=== PATIENT | male | born 1970 | race Caucasian/White ===

== ENCOUNTER 2024-02-12 12:03 | Emergency (ER) | payer SELFPAY ==
[2024-02-12 12:35] VITALS: BP 173/120
--- NOTE | 2024-02-12 14:06 | ED.GENMED ---
History of Present Illness
General
Chief Complaint: Skin Surface Trauma
Source: patient
Exam Limitations: none
Time Seen by Provider: 02/12/24 13:09
Nursing documentation reviewed up to this point in time: agreed with
Travel History
Have you had any contact with someone who has COVID-19?: No
Do you have any symptoms of coronavirus? Fever > 100 degrees, chills, cough, shortness of breath, sore throat, loss of taste or smell, muscle aches, or headache?: No
History of Present Illness
History of Present Illness:
53-year-old male past medical history of hypertension presenting to the emergency department today after a piece of metal cut his right wrist on the top of the wrist. He immediately noticed swelling and bleeding from the area. He applied pressure
and came to the ER. He claims that the wounds are very small punctures denies any gaping wound. He claims that he is up-to-date with his tetanus shot.
Past History
Past History
ED Past Medical History: None; Negative Asthma or HTN
ED Past Surgical History: Other (L foot surg.)
Social History
Tobacco: Former smoker
Personal:
Living: with family
Employment: Employed
Review of Systems
Review of Systems
Allergies reviewed?: Yes
All Other Systems: ROS reviewed and negative except as documented in HPI and ROS
Phy Exam
Physical Exam
Physical Exam:
GENERAL: Alert , in no apparent distress
EYE: pupils equal and reactive
NECK: Supple, no significant adenopathy.
ENT: o/p clr, mmm.
CARDIAC: Regular rate and rhythm .
LUNGS: Clear breath sounds bilaterally, no acute respiratory distress, no wheezes/rales/rhonchi
ABDOMEN: Soft, without focal tenderness, no r/g, no cvat
NEUROLOGICAL: Alert and oriented, no focal neuro deficits
SKIN: 3 small puncture wounds to the right wrist on the dorsal aspect just proximal to the wrist. No active bleeding mild tenderness to the area warm and dry, skin intact.
MUSCULOSKELETAL: No edema, well perfused.
PSYCH: Normal and appropriate interaction.
Course
Vital Signs
Initial and Last Documented VS:
Initial Vital Signs
Temp Pulse Resp Pulse Ox
98.2 F 87 19 97
02/12/24 12:19 02/12/24 12:19 02/12/24 12:19 02/12/24 12:19
Last Documented Vital Signs
Temp Pulse Resp BP Pulse Ox
98.2 F 87 19 173/120 97
02/12/24 12:19 02/12/24 12:19 02/12/24 12:19 02/12/24 12:35 02/12/24 12:19
MDM/Problems Addressed
MDM/Problems Addressed:
53-year-old male presenting to the emergency department today with concerns of puncture wound from a piece of metal to his dorsal right wrist. Initially was bleeding now controlled no pulsatile sensation to the area no evidence of significant
injury to the area otherwise no underlying tenderness to the bone. Patient did claim that this was fairly dirty and concerning is a puncture wound was started on antibiotics otherwise stable for outpatient management return precautions given.
*Critical Care Note
Total Time (30-74mins, 75-104mins- exclusive of procedures): Not Applicable
ED Attending Note
-
Portions of this chart may have been created with voice recognition software.� Occasional wrong word or��sound alike� substitutions may have occurred due to the inherent limitations of voice recognition software.
Discharge Plan
Departure
Patient Disposition: Home (Routine Discharge)
Date of Disposition: 02/12/24
Time of Disposition: 14:09
Patient with high blood pressure during this ER visit?: No
Condition: Good
Covid-19: Not Applicable
Discharge Problem:
Puncture wound of right wrist
Instructions: Wound Care (DC)
Prescriptions:
New
cefpodoxime 200 mg tablet
200 mg PO BID 3 Days Qty: 6 0RF
No Action
ibuprofen [Advil] 200 MG tablet
400 mg PO PRN (Reason: fever/aches)
hydrocodone-acetaminophen 7.5 MG/750 MG tablet
1 - 2 tab PO Q6HPRN PRN (Reason: pain) Qty: 25 0RF
levofloxacin 500 MG tablet
500 mg PO DAILY Qty: 7 0RF
Referrals:
NONE,* [Family Provider] -
Activity Restrictions/Additional Instructions:
You came to the emergency department today with concerns of an injury to your right wrist. Please keep the area clean covered and take the prescribed antibiotics to reduce risk of infection. Return to the emergency department for any worsening,
new or concerning symptoms.
Interventions
Interventions:
*Risk Screen - Suicide Last Done: 02/12/24 12:19
*General Assessment Last Done: 02/12/24 12:19
*Neglect/Abuse Screening Last Done: 02/12/24 12:19
ED-Skin Assessment Last Done: 02/12/24 13:34
Discharge Date and Time
Print Language: TURKMEN
[2024-02-12] MEDS: OMNICEF 300 MG PO (14:17)
[2024-02-12 14:23] VITALS: BP 169/113
[2024-02-12 14:24] VITALS: BP 169/113
== END 2024-02-12 14:25 | disposition home or self-care (01) ==
LOC: EMR 12:03
PROVIDERS: EMERGENCY PHYSICIAN Emergency Medicine
DX: S61.531A Puncture wound without foreign body of right wrist, initial encounter (principal); W26.8XXA Contact with other sharp object(s), not elsewhere classified, initial encounter; Z87.891 Personal history of nicotine dependence
CPT/HCPCS: 99283

== ENCOUNTER 2024-12-21 15:52 | Emergency (ER) | payer SELFPAY ==
[2024-12-21 16:02] VITALS: BP 139/90
[2024-12-21 16:42] LABS: COVID-19 Antigen Negative (Negative)
[2024-12-21 17:32] VITALS: BP 164/92
[2024-12-21 17:34] VITALS: BMI 35.3
[2024-12-21] MEDS: TORADOL 15 MG IV (17:42)
[2024-12-21] MEDS: NSS 1000 IV (17:42)
--- NOTE | 2024-12-21 17:46 | ED.GENMED ---
History of Present Illness
General
Chief Complaint: Cold/Flu/URI Symptoms
Source: patient
Exam Limitations: none
Time Seen by Provider: 12/21/24 17:02
Nursing documentation reviewed up to this point in time: agreed with
History of Present Illness
History of Present Illness:
Patient to ED with complaint of fever, cough, body aches. Symptoms started Thurs and contine to progress. Complains now of chest pain when coughing. Brought self to ED for eval.
Past History
Past History
ED Past Medical History: HTN; Negative Asthma
ED Past Surgical History: Other (L foot surg.)
Social History
Tobacco: Former smoker
Personal:
Living: with family
Employment: Employed
Review of Systems
Review of Systems
Allergies reviewed?: Yes
All Other Systems: ROS reviewed and negative except as documented in HPI and ROS
Constitutional: Reports fever and fatigue
EENT: Reports no symptoms
Respiratory: Reports cough
Cardiac: Reports no symptoms
ABD/GI: Reports no symptoms
Musculoskeletal: Reports other (generalized body aches.)
Skin: Reports no symptoms
Neurological: Reports weakness
Psychiatric: Reports no symptoms
Phy Exam
General Physical Exam
General Presentation: mild distress
General age: appears stated age
General Skin: warm and dry
General Habitus: normal
General Mental: alert
Cardiovascular Exam
Cardiovascular Exam: no edema and tachycardia
Pulmonary Exam
Pulmonary Exam: lungs clear and no respiratory distress
Gastrointestinal Exam
Gastrointestinal Exam: non tender and soft
Musculoskeletal Exam
Musculoskeletal Exam: full ROM and neuro vasc intact
Skin Exam
Skin Exam: normal color, warm/dry and no rash
Psychiatric Exam
Psychiatric Exam: normal mood/affect
Course
Orders/Labs/Results
Orders:
Orders
12/21/24 15:54
Electrocardiogram (*1) Urgent
Reason for Study: Chest Pain
EKG- Treatment ONCE
12/21/24 16:05
COVID-19 Antigen Urgent
Source: Nasal Swab
Influenza A+B Rapid Molecular Urgent
NOLAN Source: Nasal Swab
Specimen Description:
12/21/24 17:13
Ketorolac [Toradol] 15 mg IV NOW STA
CR Chest - 2 Views Urgent
Comment:
Reason For Exam: Cough, fever
12/21/24 17:14
0.9% Sodium Chloride 1000 ml [Nss] 1,000 ml IV BOLUS
12/21/24 17:36
Complete Blood Count/With Diff Urgent
Comprehensive Metabolic Panel Urgent
Abnormal Lab Results
12/21/24
17:36
MCH 31.4 H pg
(27.0-31.0)
Absolute Lymphs (auto) 0.7 L 10^3/uL
(1.2-3.4)
Absolute Monos (auto) 0.7 H 10^3/uL
(0.1-0.6)
Neutrophils % 75.8 H %
(42.2-75.2)
Lymphocytes % 11.0 L %
(20.5-51.1)
Monocytes % 11.3 H %
(1.7-9.3)
Sodium 133 L mmol/L
(135-145)
Chloride 97 L mmol/L
(98-107)
Glucose 107 H mg/dl
(70-99)
12/21/24 17:36
12/21/24 17:36
Vital Signs
Initial and Last Documented VS:
Initial Vital Signs
Pulse Resp BP Pulse Ox
125 18 139/90 94
12/21/24 16:02 12/21/24 16:02 12/21/24 16:02 12/21/24 16:02
Last Documented Vital Signs
Pulse Resp BP Pulse Ox
94 25 150/85 93
12/21/24 20:15 12/21/24 20:15 12/21/24 21:00 12/21/24 21:15
*Radiology
Radiology exam reviewed: radiology read reviewed
*Pulse Oximetry
Patient hypoxic: no
*Critical Care Note
Total Time (30-74mins, 75-104mins- exclusive of procedures): Not Applicable
Update Note
Update Note:
Patient to ED with complaint of flu-like symptoms since Sunday. Tested influenza A postive tonight. CXR neg for pneumonia. VSS, fever responding to tylenol. Will discharge home and he will follow upw ith his family doctor. Given instructions
on s/s to return to ED and he is agreeable to plan.
ED Attending Note
-
Portions of this chart may have been created with voice recognition software.� Occasional wrong word or��sound alike� substitutions may have occurred due to the inherent limitations of voice recognition software.
Discharge Plan
Departure
Patient Disposition: Home (Routine Discharge)
Date of Disposition: 12/21/24
Time of Disposition: 21:05
Patient with high blood pressure during this ER visit?: No
Condition: Good
Covid-19: Not Applicable
Discharge Problem:
Influenza A
Instructions: Fever, Adult (DC), Flu in adults - Discharge instructions
Prescriptions:
No Action
ibuprofen [Advil] 200 MG tablet
400 mg PO PRN (Reason: fever/aches)
hydrocodone-acetaminophen 7.5 MG/750 MG tablet
1 - 2 tab PO Q6HPRN PRN (Reason: pain) Qty: 25 0RF
levofloxacin 500 MG tablet
500 mg PO DAILY Qty: 7 0RF
cefpodoxime 200 mg tablet
200 mg PO BID 3 Days Qty: 6 0RF
Referrals:
Reji Castillo MD [Family Provider] - Follow up in 2-3 days
Interventions
Interventions:
*Risk Screen - Suicide Last Done: 12/21/24 17:36
*General Assessment Last Done: 12/21/24 17:34
*Neglect/Abuse Screening Last Done: 12/21/24 17:36
ED- Fall Risk Assessment Last Done: 12/21/24 17:34
*ED COVID-19 Vaccine History Last Done: 12/21/24 17:34
*Nursing Disposition Last Done: 12/21/24 21:20
ED- Pulmonary Assessment Last Done: 12/21/24 17:36
Discharge Date and Time
Discharge Date/Time: 12/21/24 21:32
Print Language: GERMAN
[2024-12-21 17:56] LABS: % Basophils 0.3 % (0-2); % Eosinophils 1.1 % (0-6); % Immature Granulocytes 0.5 % (0-0.5); % Monocytes 11.3 % (1.7-9.3); % Neutrophils 75.8 % (42.2-75.2); Absolute Eosinophils 0.1 10^3/uL (0-0.7); Absolute Lymphocytes 0.7 10^3/uL (1.2-3.4); Absolute Monocytes 0.7 10^3/uL (0.1-0.6); Absolute Neutrophils 4.6 10^3/uL (1.4-6.5); Hematocrit 42.4 % (39.0-52.0); Hemoglobin 14.8 g/dL (13.0-18.0); Mean Corp Hgb Conc. 34.9 g/dL (33.0-37.0); Mean Corpuscular Hgb 31.4 pg (27.0-31.0); Mean Corpuscular Volume 89.8 fL (80.0-94.0); Mean Platelet Volume 9.6 fL (7.4-10.4); Nucleated Red Blood Cells % 0 % (-); Platelet Count 164 10^3/uL (130-400); Red Blood Cell Count 4.72 10^6/uL (4.70-6.10); Red Cell Dist. Width 13.2 % (11.5-14.5); White Blood Cell Count 6.1 10^3/uL (4.8-10.8)
[2024-12-21 18:00] VITALS: BP 153/82
[2024-12-21 18:13] LABS: ALT (SGPT) 50 U/L (0-50); AST (SGOT) 41 U/L (17-59); Albumin 4.9 g/dl (3.5-5.0); Alkaline Phosphatase 50 U/L (38-126); Blood Urea Nitrogen 19 mg/dl (9-20); Calcium 8.8 mg/dl (8.4-10.2); Carbon Dioxide 26 mmol/L (22-30); Chloride 97 mmol/L (98-107); Estimated Creatinine Clearance 81 ml/min; Glucose 107 mg/dl (70-99); Sodium 133 mmol/L (135-145); Total Bilirubin 0.8 mg/dl (0.2-1.3); Total Protein 7.5 g/dl (6.3-8.2); eGFR > 60.00
[2024-12-21 19:00] VITALS: BP 150/84
[2024-12-21 20:00] VITALS: BP 149/82
[2024-12-21 21:00] VITALS: BP 150/85
== END 2024-12-21 21:32 | disposition home or self-care (01) ==
LOC: EMR 15:52
PROVIDERS: Nurse Practitioner; EMERGENCY PHYSICIAN Student in an Organized Health Care Education/Training Program; FAMILY PHYSICIAN Family Medicine
DX: J10.1 Influenza due to other identified influenza virus with other respiratory manifestations (principal); I10 Essential (primary) hypertension; Z87.891 Personal history of nicotine dependence
CPT/HCPCS: 99285; 96374; 96361; 71046; 80053; 85025; 87502; 87811; 93005

== ENCOUNTER 2025-04-10 19:40 | Emergency (ER) | payer SELFPAY ==
[2025-04-10 19:45] VITALS: BP 170/109
[2025-04-10 20:44] VITALS: BMI 35.1
[2025-04-10 21:33] VITALS: BP 152/94
--- NOTE | 2025-04-10 22:27 | ED.GENMED ---
History of Present Illness
General
Chief Complaint: Musculo-Skeletal Complaint
Time Seen by Provider: 04/10/25 20:43
History of Present Illness
History of Present Illness:
54-year-old male history of hypertension presenting with right upper arm injury. Patient states that he was installing a microwave when he accidentally dropped a microwave on his right upper arm/elbow. Patient reports significant pain to his right
biceps traveling down to his right forearm. Patient states that he was seen at urgent care where he had x-rays showing no acute fracture or dislocation. Patient states that he was instructed to come to the emergency department for an emergent MRI
or CT scan due to concern for tendon injury. Patient denies numbness, weakness or tingling.
Past History
Past History
ED Past Medical History: HTN; Negative Asthma
ED Past Surgical History: Other (L foot surg.)
Social History
Tobacco: Former smoker
Personal:
Living: with family
Employment: Employed
Phy Exam
Physical Exam
Physical Exam:
General: Alert, no acute distress
Head: NCAT
Eyes: clear conjunctiva
Lungs:Speaking full unlabored sentences. No respiratory distress.
MSK: no bony tenderness to right shoulder or elbow. 2+ right radial pulse. tenderness to right bicep, no brynn deformity. FROM right elbow and shoulder. compartments soft to right arm
Skin: warm, dry
Neuro: Alert and oriented x3. no focal deficits
Course
Vital Signs
Initial and Last Documented VS:
Initial Vital Signs
Temp Pulse Resp BP Pulse Ox
98.3 F 114 16 170/109 95
04/10/25 19:45 04/10/25 19:45 04/10/25 19:45 04/10/25 19:45 04/10/25 19:45
Last Documented Vital Signs
Temp Pulse Resp BP Pulse Ox
98.3 F 89 18 152/94 95
04/10/25 19:45 04/10/25 21:33 04/10/25 21:33 04/10/25 21:33 04/10/25 21:33
MDM/Problems Addressed
MDM/Problems Addressed:
54-year-old male presenting with right arm pain after microwave fell on his right inner arm. Patient had x-rays completed at urgent care that showed no bony abnormality. No bony tenderness to palpation, FROM right elbow/shoulder, neurovascularly
intact with soft compartments. Suspect muscular/tendon injury. Advised ice, elevation, Tylenol/Motrin. Stable for discharge with orthopedic follow-up
*Critical Care Note
Total Time (30-74mins, 75-104mins- exclusive of procedures): Not Applicable
ED Attending Note
-
Portions of this chart may have been created with voice recognition software.� Occasional wrong word or��sound alike� substitutions may have occurred due to the inherent limitations of voice recognition software.
Discharge Plan
Departure
Patient Disposition: Home (Routine Discharge)
Date of Disposition: 04/10/25
Time of Disposition: 21:22
Patient with high blood pressure during this ER visit?: Yes
Discharge Problem:
Arm pain, left
Instructions: Muscle Strain (DC), BLOOD PRESSURE
Prescriptions:
No Action
ibuprofen [Advil] 200 MG tablet
400 mg PO PRN (Reason: fever/aches)
hydrocodone-acetaminophen 7.5 MG/750 MG tablet
1 - 2 tab PO Q6HPRN PRN (Reason: pain) Qty: 25 0RF
levofloxacin 500 MG tablet
500 mg PO DAILY Qty: 7 0RF
cefpodoxime 200 mg tablet
200 mg PO BID 3 Days Qty: 6 0RF
Referrals:
Kj Serrano MD [Active, Orthopedics]
Reji Castillo MD [Family Provider, Family Practice]
Activity Restrictions/Additional Instructions:
Take Tylenol 975 mg every 6 hours and/or ibuprofen 800 mg every 8 hours if is needed for pain
Rest, ice
Use sling as needed
Follow-up with orthopedics next week
Return to the emergency department for new/worsening symptoms
Interventions
Interventions:
*Risk Screen - Suicide Last Done: 04/10/25 19:45
*General Assessment Last Done: 04/10/25 19:45
*Neglect/Abuse Screening Last Done: 04/10/25 19:45
*ED- Fall Risk Assessment Last Done: 04/10/25 19:45
*ED COVID-19 Vaccine History Last Done: 04/10/25 19:45
*Nursing Disposition Last Done: 04/10/25 21:47
ED-Musculoskeletal Assessment Last Done: 04/10/25 20:45
Discharge Date and Time
Discharge Date/Time: 04/10/25 21:48
Print Language: ICELANDIC
== END 2025-04-10 21:48 | disposition home or self-care (01) ==
LOC: EMR 19:40
PROVIDERS: EMERGENCY PHYSICIAN Emergency Medicine; FAMILY PHYSICIAN Family Medicine
DX: S49.91XA Unspecified injury of right shoulder and upper arm, initial encounter (principal); W20.8XXA Other cause of strike by thrown, projected or falling object, initial encounter; I10 Essential (primary) hypertension; Z87.891 Personal history of nicotine dependence
CPT/HCPCS: 99282

== ENCOUNTER → 2025-04-22 10:37 | Outpatient (REF) | payer SELFPAY ==
[2025-04-22 11:59] LABS: % Eosinophils 4.2 % (0-6); % Immature Granulocytes 0.3 % (0-0.5); % Lymphocytes 18.6 % (20.5-51.1); % Monocytes 10.2 % (1.7-9.3); % Neutrophils 65.7 % (42.2-75.2); Absolute Basophils 0.1 10^3/uL (0-0.2); Absolute Eosinophils 0.3 10^3/uL (0-0.7); Absolute Lymphocytes 1.3 10^3/uL (1.2-3.4); Absolute Monocytes 0.7 10^3/uL (0.1-0.6); Absolute Neutrophils 4.5 10^3/uL (1.4-6.5); Hematocrit 44.8 % (39.0-52.0); Hemoglobin 15.3 g/dL (13.0-18.0); Mean Corp Hgb Conc. 34.2 g/dL (33.0-37.0); Mean Corpuscular Hgb 31.4 pg (27.0-31.0); Mean Corpuscular Volume 91.8 fL (80.0-94.0); Mean Platelet Volume 10.4 fL (7.4-10.4); Nucleated Red Blood Cells % 0 % (-); Platelet Count 257 10^3/uL (130-400); Red Blood Cell Count 4.88 10^6/uL (4.70-6.10); Red Cell Dist. Width 13.6 % (11.5-14.5); White Blood Cell Count 6.9 10^3/uL (4.8-10.8)
[2025-04-22 12:42] LABS: Blood Urea Nitrogen 18 mg/dl (9-20); Calcium 9.6 mg/dl (8.4-10.2); Carbon Dioxide 28 mmol/L (22-30); Chloride 104 mmol/L (98-107); Glucose 92 mg/dl (70-99); Potassium 4.6 mmol/L (3.5-5.1); Sodium 140 mmol/L (135-145); eGFR > 60.00
== END ==
LOC: REG 10:37
PROVIDERS: ATTENDING PHYSICIAN Orthopaedic Surgery
DX: Z01.818 Encounter for other preprocedural examination (principal)
CPT/HCPCS: 36415; 80048; 85025; 93005